=== PATIENT | female | born 1995 | race Caucasian/White ===

== ENCOUNTER 2025-05-10 14:28 | Outpatient (AMB) | payer BC, SELFPAY ==
--- NOTE | 2025-05-10 14:32 | A.OFFPC_ITS ---
Vital Signs 05/10/25 14:37 05/10/25 14:59 Height 5 ft 5 in Weight 229 lb 4 oz BMI 38.1 BP 142/76 H 118/72 Blood Pressure Location Rt brachial Rt brachial Position Sitting Sitting Respiration 14 Pulse 76 Pulse Source Pulse Oximeter Temp 97.8 F Temp Source Oral Pulse Oximetry (%) 99 Oxygen Delivery Method Room Air Intake Visit Reasons: CPE Intake Note: New patient to establish care and cpe Barrel Turner Required: No Allergies amoxicillin Allergy (Severe, Verified 05/10/25 14:52) Hives Medication List - Last Reconciled 05/10/25 by Maribeth Del Valle, SUPERINTENDENT SERVICE-BC valacyclovir (Valtrex) 500 mg PO DAILY Tobacco use date assessed: 05/10/25 Dental Screening Dental Screen Date: 05/10/25 Did you have a dental visit in the last 12 months?: Yes Did you have a dental problem in the last 6 months where you did not have access to dental care?: No Was dental information given to patient?: Patient has dentist HPI HPI Comments History of Present Illness Details 29-year-old female with herpes, gestatio nal htn, Obesity Social: Son Zak born1 year, , works at [employer]: None Fhx: Dad [place]; Maternal uncle pancreatic ca Health Maintenance: PAP 2023 Tdap 2023 Flu declined 05/10/25 Specialists: social service technician History of Present Illness The patient is a 29-year-old female presenting to establish care and for a Valtrex prescription renewal. Previous PCP records reviewed. Obesity: - The patient has a history of obesity w ith a BMI of 38.1. - She would like to get her weight under control before planning for another child next year. - She has not been working out at all Stampt plans to get back on track with exercise and a better diet, which has been effective for her in the past. - She declined a referral to a nutrition ist at this time. Herpes Simplex Infection: - The patient has a history of herpes an d uses Valtrex for suppression. - She was taking Valtrex 500 mg daily bu [facility] ran out after moving a couple of months ago. - She reports that taking it every few d ays has also been effective. Gestational Hypertension: - The patient has a history of gestation al hypertension during her only , which was managed with Procardia. - The condition has since resolved, and she is no longer on any antihypertensive medications. - She denies having gestational diabetes . Past Medical History - Past Medical History: Significant for obesity (BMI 38.1), history of gesta tional hypertension, and herpes simplex infection. - She denies a history of dep ression, which was an error in her imported records. - Past Surgical History: Denies any past surgeries. - Family History: Her father has a histo ry of heart attacks, and her maternal uncle from pancreatic cancer. - Medications: Uses Valtrex 500 mg for h erpes suppression. - Allergies: Allergic to amoxicillin. - Immunizations: Tetanus shot was update d in 2023; she declined the flu vaccine. - Health Maintenance: Last Pap smear was in 2023 and was normal. - Social History: Has one son and is con sidering having another child next year. Review of Systems - General: Patient reports feeling well and denies any specific complaints. - Psychiatric: Denies symptoms of anxiet y or depression; mood is good. Physical Exam General: Well developed, well nourished, in no acute distress. Appears stated age. Head: Normocephalic, atraumatic. Eyes: Pupils are equal, round and reactive to light and accommodation. Conjunctivae are clear. Lungs: Clear to auscultation bilaterally. No rales, rhonchi or wheeze noted. Good air flow in all baldwin. Heart: Regular rate and rhythm. No murmurs, click, rubs or gallops are noted. Pulses: Peripheral pulses are equal and palpable bilaterally. Extremities: No clubbing, cyanosis nor edema is noted. Psych: Mood and affect appropriate. Results - Labs: Blood work from August was nor mal. - Tests and Diagnostics: A Pap smear com pleted in 2023 was normal. Medical Decision Making The patient is a 29-year-old female here to establish care. Her past medical history is significant for obesity, a history of resolved gestational hypertension, and herpes simplex infection for which she requests a prescription renewal. A prior chart entry of depression was found to be an error and was corrected. An initial elevated blood pressure was attributed to rushing, as it normalized to 118/72 mmHg on recheck. The plan includes renewing her Valtrex prescription for suppressive therapy. For her obesity, the patient will initiate lifestyle modifications, including diet and exercise, and will follow up if she requires further support such as a commissioner of officials referral. Preventative care was addressed, and annual labs will be ordered to be drawn one week prior to her next wellness visit in August. The patient was educated on using the [facility] patient portal for office communication and the availability of walk-in clinics for urgent needs. Follow-up is scheduled for her wellness exam in August. Plan 1. Establishment Of Care / Preventative Care - Orders for annual wellness labs have b een placed, to be completed one week prior to the next appointment. - The patient was instructed that fastin g is not required for labs drawn at this facility. - The patient was educated on using the [facility] patient portal for communication and provided with information on walk-in clinic locations. - Schedule a follow-up visit in August for a wellness exam to review lab results. 2. Herpes Simplex Infection - A 90-day supply of Valtrex 500 mg will be prescribed for suppressive therapy, to be sent to the [facility] in [place]. 3. Obesity - The patient will focus on weight manag ement through diet and increased physical activity. - A referral to a commissioner of officials was offer ed, but the patient declined for now. - The patient was advised to reach out i f she needs support with weight loss in the future. 4. History Of Gestational Hypertension - Blood pressure was rechecked during th e visit and found to be normal at 118/72 mmHg. - No antihypertensive medication is kallie cated at this time. Patient Instructions - Your prescription for Valtrex has been sent to the [facility] in [place]. - You will receive an email to sign up f or our [facility] patient portal. Please click the link in the email within 24 hours to create your account. Use the portal to send messages to our office. - Please schedule your next wellness vis it for August. - About one week before your August ap pointment, please come to our lab to have your blood work done. You do not need to fast (you can eat and drink) if you use our lab. You do not need an appointment, just take a number at the front loader residential driver. - We will discuss your lab results at yo ur appointment in August. - For urgent care needs, you can visit o ur walk-in locations in [place] or [place]. Your office visit summary will have this information. - RTO FEb for CPE, labs 1 week before, s ooner PRN Consent Patient was informed and verbally consented to the use of an ambient scribe for clinic note documentation during this visit. Total time spent caring for the patient today was 45 minutes. This includes time spent before the visit reviewing the chart, time spent during the visit, and time spent after the visit on documentation, reviewing laboratory results, diagnostic imaging, medications, performing a medically necessary evaluation, counseling on diagnoses, care coordination, ordering appropriate tests, ordering appropriate medications, review of tests performed by other providers, reporting test results with the patient, communication with other healthcare providers. [facility] Medical History (Updated 05/10/25 @ 15:01 by Maribeth Del Valle [facility]) No pertinent past medical history Surgical History (Updated 05/10/25 @ 14:40 by Ashish Bello MA) No pertinent past surgical history Family History (Updated 05/10/25 @ 14:40 by Ashish Bello MA) Father HTN (hypertension) High cholesterol Social History (Updated 05/10/25 @ 14:32 by Ashish Bello MA) Housing: House Alcohol intake: current Alcohol intake frequency: a few times a month Patient Tobacco Use Status: Never used Tobacco e-Cigarette/Vaping Use: Never Used Second Hand Smoke Exposure: No service: No Current occupational status: employed 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 1. Little interest or pleasure in doing things: not at all 2. Feeling down, depressed, or hopeless: not at all 3. Trouble falling or staying asleep, or sleeping too much: not at all 4. Feeling tired or having little energy: not at all 5. Poor appetite or overeating: not at all 6. Feeling bad about yourself - or that you are a failure or have let yourself or your family down: not at all 7. Trouble concentrating on things, such as reading the newspaper or watching television: not at all 8. Moving or speaking so slowly that other people could have noticed. Or the opposite - being so fidgety or restless that you have been moving around a lot more than usual: not at all 9. Thoughts that you would be better off or of hurting yourself in some way: not at all Total score: 0 Depression Screening Interpretation: Negative Depression Screening Done: Yes 26724 - PHQ-9 Billing: Yes Source: Developed by Drs. Vitor Jeffrey, Migdalia Ceballos, Bob Weiss and colleagues, with an educational jazlyn from [employer]. Thrive Questionnaire Date Thrive assessed: 05/10/25 I am a: Patient What is your living situation today?: I have a steady place to live Within the past 12 months, did the food you bought not last and you didn't have the money to get more?: Never true Within the past 12 months, did you worry whether your food would run out before you got money to buy more?: Never true Do you have trouble paying for medicines?: No Do you have trouble getting transportation to medical appointments?: No Do you have trouble paying your heating and electricity bill?: No Do you have trouble taking care of your child, family member or friend?: No Do you have trouble with day-to-day activities such as bathing, preparing meals, shopping, managing finances, etc.?: No Are you currently unemployed and looking for a job?: No Are you interested in more education?: No Please select the resources that you would like help with: None Currently or been in a relationship where the following occur: No concerns reported THRIVE Score: 0 AUDIT C Alcohol Use Questionnaire (AUDIT-C) 1. How often do you have a drink containing alcohol?: Monthly or less 2. How many drinks containing alcohol do you have on a typical day when you are drinking?: 1 or 2 3. How often do you have six or more drinks on one occasion?: Never Total Score: 1 Score Reviewed/Action Taken: Yes ARGELIA-7 AMB Questionnaire ARGELIA-7 Date ARGELIA - 7 assessed: 05/10/25 Feeling nervous, anxious, or on edge: 0 = Not at all Not being able to stop or control worryin = Not at all Worrying too much about different things: 0 = Not at all Trouble relaxin = Not at all Being so restless that it is hard to sit still: 0 = Not at all Becoming easily annoyed or irritable: 0 = Not at all Feeling afraid as if something awful might happen: 0 = Not at all Total ARGELIA-7 score (0-4 normal; 5-9 mild; 10-14 moderate; 15-21 severe): 0 Source: Developed by Drs. Vitor Jeffrey, Migdalia Ceballos, Bob aj nd colleagues, with an educational jazlyn from [employer]. ARGELIA-7 Assessment Billing ARGELIA-7 Assessment Tool: ARGELIA-7 Assessment 43648 Physical exam (Primary Care) Vital Signs: Last Vital Signs Temp 97.8 F 05/10/25 14:37 Pulse 76 05/10/25 14:37 Resp 14 05/10/25 14:37 BP 142/76 H 05/10/25 14:37 Pulse Ox 99 05/10/25 14:37 Oxygen Delivery Method Room Air 05/10/25 14:37 BMI result Body Mass Index 38.1 BMI Assessment/Plan discussion: High BMI High, discussed plan: lifestyle Tobacco/Smoking Status: Tobacco use Status Tobacco use date assessed 05/10/25 05/10/25 14:39 Patient Tobacco Use Status Never used Tobacco 05/10/25 14:39 e-Cigarette/Vaping Use Never Used 05/10/25 14:39 PHQ-9: PHQ-9 Score PHQ-9: Total score 0 05/10/25 14:39 Depression Screening Interpretation: Negative Thrive Assessment: Date of Thrive Assessment Date Thrive assessed 05/10/25 05/10/25 14:39 Currently or been in a relationship where the following occur: No concerns reported Coding Level of Care Code New Pt Level 4 (00119) Complex EM visit Add On G2211 Diagnoses Encounter to establish care Z76.89 Herpes B00.9 History of gestational hypertension Z87.59 History of Papanicolaou smear of cervix Z92.89 Influenza vaccination declined Z28.21 Obesity (BMI 30-39.9) E66.9 Laboratory exam ordered as part of routine general medical examination Z00.00 Additional Codes ARGELIA-7 Assessment Billing - ARGELIA-7 Assessment Tool: ARGELIA-7 Assessment 73209 ([id number]) PHQ-9 - 52481 - PHQ-9 Billing: Yes ([id number]) Assessment & Plan Assessment & Plan (1) Encounter to establish care: Code(s): Z76.89 - Persons encountering health services in other specified circumstances (2) Herpes: Code(s): B00.9 - Herpesviral infection, unspecified Category: Medical (3) History of gestational hypertension: Code(s): Z87.59 - Personal history of other complications of , childbirth and the puerperium Category: Medical (4) History of Papanicolaou smear of cervix: Onset Date: ~2023 Code(s): Z92.89 - Personal history of other medical treatment Category: Medical (5) Influenza vaccination declined: Onset Date: ~05/10/25 Code(s): Z28.21 - Immunization not carried out because of patient refusal Category: Medical (6) Obesity (BMI 30-39.9): Code(s): E66.9 - Obesity, unspecified Category: Medical (7) Laboratory exam ordered as part of routine general medical examination: Code(s): Z00.00 - Encounter for general adult medical examination without abnormal findings Category: Medical Plan . Orders: Orders Complete Blood Count no Diff 08/14/25 E66.9 - Obesity, unspecified, Z00.00 - Encounter for general adult medical examination without abnormal findings Hemoglobin A1c 08/14/25 E66.9 - Obesity, unspecified, Z00.00 - Encounter for general adult medical examination without abnormal findings Microalbumin, Random (w Creat) 08/14/25 E66.9 - Obesity, unspecified, Z00.00 - Encounter for general adult medical examination without abnormal findings TSH reflex Free T4 08/14/25 E66.9 - Obesity, unspecified, Z00.00 - Encounter for general adult medical examination without abnormal findings Comprehensive Met. Panel 08/14/25 E66.9 - Obesity, unspecified, Z00.00 - Encounter for general adult medical examination without abnormal findings Lipid Panel 08/14/25 E66.9 - Obesity, unspecified, Z00.00 - Encounter for general adult medical examination without abnormal findings Vitamin B12 and Folate 08/14/25 E66.9 - Obesity, unspecified, Z00.00 - Encounter for general adult medical examination without abnormal findings Vitamin D 25-OH Total 08/14/25 E66.9 - Obesity, unspecified, Z00.00 - Encounter for general adult medical examination without abnormal findings Medications: New valacyclovir (Valtrex) 500 mg PO DAILY 90 tabs 2RF Patient Instructions: Walk-In Care (Urgent Care): We Make it Easy Walk-in for urgent medical issues such as: ? Seasonal Allergies ? Insect Bites ? Cough ? Diarrhea ? Acute Asthma Attacks ? Back, Knee or Joint Pain ? Ear Infection ? Fever without a Rash ? Headaches ? Nausea ? [place] Eye, Rash or Skin Irritation ? Sore Throat ? Sports Physicals ? Vomiting Most insurances are accepted. Patients do not need to be part of the [facility] to seek care at the walk-in clinic. Locations [address] [place] [address] Open Friday through Friday 8am-5pm *Hours may vary due to staffing availability. To confirm Walk-In Care hours please call. [address] [place] [address] ? [phone] [facility] Walk-In Care in [place] provides services to ages 18 and over. Open Friday-Friday: 7 a.m. to 5 p.m. and Friday: 9 a.m. to 3 p.m.* *Hours may vary due to staffing availability. To confirm Walk-In Care hours in [place], please call [phone]. [address] [place] [address] ? [phone] [facility] Walk-In Care in [place] provides services to ages 12 and over. Open Friday-Friday: 8 a.m. to 5 p.m. Hours may vary due to staffing availability. To confirm Walk-In Care hours in [place], please call [phone]. LABORATORY SERVICES: [facility] Lab ? Primary Location [address] [place] [address] Friday through Friday 6:00 AM ? 5:00 PM Friday 7:00 AM ? 11:00 AM* [phone] The [facility] Lab is centrally located near the front entrance of the [facility] for easy outpatient access. Convenient parking is provided for outpatients. *Hours may vary due to staffing availability. To confirm Laboratory hours for any location, please call [phone]. Offsite Location For your convenience, we offer offsite laboratory draw stations at the following locations: [address] [place] [address] ? [facility] [address], [address], [place] Friday through Friday 7:30 AM ? 1:00 PM* [phone] *Hours may vary due to staffing availability. To confirm Laboratory hours for any location, please call [phone]. [place] ? [address] Friday through Friday 6:00 AM ? 3:30 PM* Friday 6:30 AM ? 3 PM* [phone] *Hours may vary due to staffing availability. To confirm Laboratory hours for any location, please call [phone]. [address] [facility] Friday through Friday 7:30 AM ? 4:00 PM* [phone] *Hours may vary due to staffing availability. To confirm Laboratory hours for any location, please call [phone]. [facility] Friday through 9:00 AM ? 4:00 PM* *Hours may vary due to staffing availability. To confirm Laboratory hours for any location, please call [phone]. Appointments are not necessary. Walk-ins are welcome. Like all the departments throughout the [facility], our Lab undergoes frequent reviews to ensure the quality and accuracy of test results, and our staff takes special pride in its status as a nationally accredited facility. Patient Portal: [facility] ONE PATIENT. ONE RECORD. BETTER CARE. [facility] has a fully integrated, cutting- edge mobile electronic health information system that has revolutionized the way we care for our patients and manage our organization. This system improves communication and coordination enabling us to provide safe, higher-quality care, and an overall positive experience for staff and patients. Our first priority, as always, is to deliver the highest quality care possible. The system is running in the background supporting that priority. This portal is for all [facility] services and practices. If you are experiencing any technical difficulties with enrolling or logging i nto the Patient Portal please complete the [facility] Patient Portal Technical Support Form. [facility] now offers a new secure on-line interactive tool for patients to review their health information ? ?Patient Portal. This interactive web portal will enable patients and their families to take an active role in their care by providing easy, secure access to their he alth information via the internet. The Patient Portal provides patients with instant access to their health information, including laboratory results, medications, allergies, demographic information, visit history, and more. In addition to managing their own care, parents and health care proxies with authorized consent will appreciate the ability to access the records of those individuals for whom they provide care. Please note: if you wish to gain access (Proxy) to another patient?s portal, you will be required to come to the Medical Records Department in person at [facility]. Both the patient giving proxy access and the proxy will need to provide photo identification and complete the appropriate authorization. The Patient Portal also allows track their appointments online. The [facility] Patient Portal also saves patients time by allowing them to submit updates to their demographic and contact information prior to their visits. Portal email notifications will also alert patients to any new activity on their portal, such as test results and new appointments. In order to initially enroll in the [facility] Patient Portal, you will need to enter some required information including the following: * your [facility] Medical Record number * your personal home email address * name * date of Please note: In order to enroll in the [facility] Patient Portal, we need to have your email address on file in your electronic medical record. ?The email address needs to be specific for one person (yourself) in order for your Portal enrollment to be successful. ?You can update your email address in person with our Registration staff when you are registering for a hospital visit. ?Otherwise, you will need to come to the Health Information Management (Medical Records) Department at [facility]. ?We are open from Friday ? Friday from 7:30 a.m. ? 4:30 p.m. ?You will be required to present a photo id. Once you have successfully enrolled in the Patient Portal, you will receive a one-time user id and password for the Portal, sent to your email address. ?This will allow you to log into the Patient Portal within 99 hrs and reset your own logon id and password, and define personal security questions. ?Once your permanent login and password have been set, you can log into the [facility] Patient Portal at any time via the blue button above or from the Portal Logon button on any page of the [facility] website. [facility] encourage all of our patients to enroll in Patient Portal as it presents a valuable opportunity for patients and their families to actively participate in their care and stay healthy Welcome to [facility]. ?We look forward to working with you.
[2025-05-10 14:37] VITALS: BP 142/76; PULSE 76; RESP 14; TEMP 36.6; O2SAT 99; BMI 38.1
[2025-05-10 14:59] VITALS: BP 118/72
--- OUTSIDE RECORDS SUMMARY | 2025-05-10 18:55 | XMS_ITS | Patient Health Record ---
Author Organization [facility] Address [address] [place] [address] Care Team Providers Care Combatant Swimmer Name Role Phone JACKY OLSON Primary Care Provider Mary Giang Unavailable [phone] Allergies Allergen (clinical drug ingredient) Drug/Non Drug Allergy documented on EMR Reaction Allergy Type Onset Date Status amoxicillin AMOXICILLIN Hives Drug Allergy Act tristan Reason For Referral No Information Medications Medication SIG (Take, Route, Frequency, Duration) Notes Start Date End Date Status Cryselle-28 0.3-30 MG-MCG TAKE 1 TABLET BY MOUTH EVERY DAY; Duration: 28 Active Cryselle-28 0.3-30 MG-MCG 1 tablet Orall y Once a day; Duration: 84 Active Social History Tobacco Use: Social History Observation Description Date Details (start date - stop date) Never Smoker NA - NA Tobacco Use/Smoking Question Answer Notes Are you a nonsmoker Alcohol Screen (Audit-C) Question Answer Notes Did you have a drink contain ing alcohol in the past year? Yes How often did you have a dri nk containing alcohol in the past year? Monthly or less (1 point) How many drinks did you have on a typical day when you were drinking in the past year? 1 or 2 drinks (0 point) Points 1 Interpretation Negative Sexual History Question Answer Notes Had sex in the past 12 months (vaginal, oral, or anal)? Yes with Men only Prevention strategies discussed: Other Problems No Known Problems Plan Of Treatment Pending Test Test Name Order Date THIN PREP,HPV IF ASCUS, CT/GC (21-29YR) 01/21/2017 Insurance Providers Payer Name Payer Address Payer Phone Subscriber Number Group Number Insured Name Patient Relationship to Insured Coverage Start Date Coverage End Date [employer] [address] [place], [place] [address] [id number] GEOVANNI AHMADI Child - Insured has Financial Responsibility Medical (General) History Surgical History Surgery Date(Month/Year) Sidney Teeth
== END 2025-05-10 15:04 | disposition home or self-care (01) ==
LOC: HO.HMCFM 14:30
PROVIDERS: PCP Nurse Practitioner Family; Visit Provider Nurse Practitioner Family
DX: B00.9 Herpesviral infection, unspecified (principal); E66.9 Obesity, unspecified; Z68.38 Body mass index [BMI] 38.0-38.9, adult

== ENCOUNTER → 2025-05-10 14:28 | Outpatient (BNVA) | payer BC, SELFPAY | PROVIDERS: PCP Nurse Practitioner Family; Visit Provider Nurse Practitioner Family | DX: Z00.00 Encounter for general adult medical examination without abnormal findings (principal); E66.9 Obesity, unspecified; B00.9 Herpesviral infection, unspecified; Z76.89 Persons encountering health services in other specified circumstances; Z87.59 Personal history of other complications of pregnancy, childbirth and the puerperium; Z28.21 Immunization not carried out because of patient refusal; Z68.38 Body mass index [BMI] 38.0-38.9, adult | CPT/HCPCS: 96127 ==